=== PATIENT | male | born 1945 | race Caucasian/White ===

== ENCOUNTER 2022-01-26 18:28 | Inpatient (IN) | payer MEDICARE, BC ==
[~2022-01-26] VITALS: Ht 182.9 cm; Wt 72.6 kg
[2022-01-26] MEDS ORDERED: LOVA20TA2 PO (18:48)
--- NOTE | 2022-01-26 18:51 | NUR ---
PT IS IN ROOM #2A. DR TREJO EVALUATED THE PT.
[2022-01-26] MEDS ORDERED: MIRT-73 PO (18:58)
[2022-01-26] MEDS ORDERED: ALPR2TAB7 PO (18:58)
[2022-01-26] MEDS ORDERED: ASCO500P18 PO (18:58)
[2022-01-26] MEDS ORDERED: ATOR10TA PO (18:58)
[2022-01-26] MEDS ORDERED: QUET100T PO (18:58)
[2022-01-26] MEDS ORDERED: CYAN100T44 PO (18:58)
[2022-01-26] MEDS ORDERED: OLME20TA13 PO (18:58)
[2022-01-26] MEDS ORDERED: TRAZ-257 PO (18:58)
[2022-01-26] MEDS ORDERED: VITAMIN D PO (18:58)
[2022-01-26] MEDS ORDERED: FENO134C PO (18:58)
[2022-01-26] MEDS ORDERED: MAGNESIUM PO (18:58)
[2022-01-26 19:18] LABS: HEMATOCRIT 43.6 % (36.7-47.1); MEAN CORPUSCULAR HEMOGLOBIN 29.3 uug (23.8-33.4); MEAN CORPUSCULAR VOLUME 86.7 fL (73.0-96.2); PLATELET COUNT (AUTO) 230 K/uL (152-348)
--- NOTE | 2022-01-26 19:24 | NUR ---
Patient taken to CT
--- NOTE | 2022-01-26 19:35 | NUR ---
Patient back from CT
[2022-01-26 20:03] LABS: *BILIRUBIN,URIN NEGATIVE (NEGATIVE); *BLOOD, URINE NEGATIVE (NEGATIVE); *CLARITY,URINE CLEAR (CLEAR); *COLOR,URINE YELLOW (YELLOW); *KETONES,URINE NEGATIVE (NEGATIVE); *UROBILINOGEN,URINE 0.2 E.U./dl (NORMAL); LEUKOCYTE ESTERASE ,URINE NEGATIVE (NEGATIVE); NITRITE, URINE NEGATIVE (NEGATIVE); UGLUCOSE NEGATIVE (NEGATIVE)
--- NOTE | 2022-01-26 20:04 | NUR ---
Patient is a/ox4, able to walk with steady gait, NAD noted
[2022-01-26 20:10] LABS: ALANINE AMINOTRANSFERASE 28 U/L (16-63); ALKALINE PHOSPHATASE 42 U/L (50-136); ASPARTATE AMINOTRANSFERASE 21 U/L (15-37); BILIRUBIN,DIRECT 0.1 mg/dL (0.0-0.2); BILIRUBIN,TOTAL 0.3 mg/dL (0.2-1.0); CARBON DIOXIDE 28 mmol/L (21-32); CHLORIDE 102 mmol/L (98-107); CREATININE 1.2 mg/dL (0.6-1.3); GLUCOSE 117 mg/dL (74-106); POTASSIUM 3.8 mmol/L (3.5-5.1); TOTAL PROTEIN, SERUM 7.2 g/dL (6.4-8.2); UREA NITROGEN, BLOOD 25 mg/dL (7-18)
[2022-01-26 21:14] LABS: THYROID STIMULATING HORMONE 5.927 mIU/mL (0.358-3.740)
--- NOTE | 2022-01-26 22:05 | NUR ---
report given to Alethea DASILVA. Patient will be admitted to TELE room 312 under Rachael Robbins
[2022-01-26] MEDS ORDERED: ALPRAZOLAM 0.25 MG TABLET ONE (23:14)
[2022-01-26] MEDS ORDERED: hydrALAZINE HCL 20 MG/1 ML VIAL IV PRN (23:15)
[2022-01-26] MEDS ORDERED: MAG HYDROX/AL HYDROX/SIMETH 30 ML LIQUID UDC PO PRN (23:15)
[2022-01-26] MEDS ORDERED: ALPRAZOLAM 0.25 MG TABLET PO ONE (23:15)
[2022-01-27] MEDS: BLOOD SUGAR DIAGNOSTIC 1 EACH STRIP VI SCH ×2 (00:06→06:10)
--- NOTE | 2022-01-27 00:17 | NUR ---
Pt. admitted to TELE , under care of Dr. Rachael Robbins Belongs List completed Shy RN aware of patient's arrival
[2022-01-27] MEDS: TRAZODONE 100 MG TABLET PO SCH ×2 (00:30→21:27)
[2022-01-27 00:31] VITALS: BP 152/78
[2022-01-27] MEDS: ENOXAPARIN SODIUM 40 MG/0.4 ML DISP.SYRIN SQ SCH ×2 (00:31→21:26)
[2022-01-27] MEDS ORDERED: ALPRAZOLAM 0.5 MG TABLET PO ONE (03:00)
[2022-01-27 04:40] VITALS: BP 101/56
--- NOTE | 2022-01-27 05:48 | NUR ---
Admitted patient to tele. Alert and oriented x 4. On room air. No signs of acute respiratory distress. All extremities WNL. Able to walk to bathroom. Admitted for slurred speech. Speech clear upon assessment. Passed nurse swallow eval test. NPO. MRI ordered for later today. Explained procedure to patient. IV intact. Skin intact. Administered Xanax PO for verbalizations of anxiety. Resting in bed comfortably.
[2022-01-27 07:22] LABS: HEMATOCRIT 41.2 % (36.7-47.1); MEAN CORPUSCULAR HEMOGLOBIN 31.4 uug (23.8-33.4); MEAN CORPUSCULAR VOLUME 89.8 fL (73.0-96.2); PLATELET COUNT (AUTO) 206 K/uL (152-348)
[2022-01-27 07:28] LABS: CREATININE 1.3 mg/dL (0.6-1.3); POTASSIUM 4.1 mmol/L (3.5-5.1)
[2022-01-27] MEDS ORDERED: BLOOD SUGAR DIAGNOSTIC 1 EACH STRIP VI SCH (07:30)
[2022-01-27 07:33] LABS: BILIRUBIN,TOTAL 0.4 mg/dL (0.2-1.0); MAGNESIUM 1.8 mg/dL (1.8-2.4); PHOSPHOROUS 2.4 mg/dL (2.5-4.9); TOTAL PROTEIN, SERUM 7.3 g/dL (6.4-8.2)
--- NOTE | 2022-01-27 08:41 | NUR ---
I did bedside nursing swallow evaluation, patient could tolerate apple sauce and water very well. Said he had no difficulty swallowing at all. Meanwhile, waiting for the swallowing evaluation to come.
[2022-01-27] MEDS ORDERED: PANTOPRAZOLE SODIUM 40 MG VIAL IV SCH (09:00)
[2022-01-27] MEDS ORDERED: CYANOCOBALAMIN 100 MCG TABLET PO SCH (09:00)
[2022-01-27] MEDS ORDERED: LOSARTAN POTASSIUM 50 MG TABLET PO SCH (09:00)
[2022-01-27] MEDS ORDERED: Medication Not On Formulary EA (Fenofibrate,Micronized (Fenofibrate) 134 MG) PO SCH (09:00)
[2022-01-27] MEDS ORDERED: hydrALAZINE HCL 25 MG TABLET PO PRN (09:30)
--- NOTE | 2022-01-27 10:00 | NUR ---
MRI NOT APPROVED BY DR. ARMSTRONG. ON HOLD FOR NOW PER DR. ARMSTRONG , HE WILL LET US KNOW.
[2022-01-27] MEDS: ASCORBIC ACID 500 MG TABLET PO SCH (11:03)
[2022-01-27] MEDS: CYANOCOBALAMIN 1,000 MCG TABLET PO SCH (11:03)
[2022-01-27] MEDS: ASPIRIN EC 81 MG TABLET.DR PO SCH (11:03)
[2022-01-27] MEDS: FENOFIBRATE NANOCRYSTALLIZED 145 MG TABLET PO SCH (11:05)
[2022-01-27 11:07] VITALS: BP 156/80
[2022-01-27 11:07] LABS: THYROID STIMULATING HORMONE 6.053 mIU/mL (0.358-3.740)
[2022-01-27] MEDS ORDERED: LORAZEPAM 2 MG/1 ML VIAL IV ONE (11:45)
[2022-01-27] MEDS ORDERED: TRAZ-257 PO (13:28)
[2022-01-27] MEDS ORDERED: OXYB5TAB16 PO (13:28)
[2022-01-27] MEDS ORDERED: ALPR0.5T8 PO (13:32)
[2022-01-27 15:09] VITALS: BP 145/71
[2022-01-27] MEDS ORDERED: NEUTRA PHOS PACKET PO ONE ×2 (16:00→18:00)
[2022-01-27] MEDS: ACETAMINOPHEN 325 MG TABLET PO PRN (17:43)
[2022-01-27] MEDS ORDERED: TRAZODONE 100 MG TABLET PO SCH (18:00)
[2022-01-27] MEDS ORDERED: QUETIAPINE FUMARATE 100 MG TABLET PO SCH ×2 (18:00)
[2022-01-27 20:15] VITALS: BP 101/48
[2022-01-27] MEDS ORDERED: SIMVASTATIN 10 MG TABLET PO SCH (21:00)
[2022-01-27] MEDS ORDERED: MIRTAZAPINE 15 MG TABLET PO SCH ×2 (21:00)
[2022-01-27] MEDS ORDERED: MIRTAZAPINE 15 MG TAB.RAPDIS PO SCH (21:00)
[2022-01-28] MEDS: ACETAMINOPHEN 325 MG TABLET PO PRN (03:18)
[2022-01-28 04:18] VITALS: BP 130/65
[2022-01-28 07:16] LABS: CREATININE 1.3 mg/dL (0.6-1.3); PHOSPHOROUS 2.9 mg/dL (2.5-4.9); POTASSIUM 4.2 mmol/L (3.5-5.1)
[2022-01-28] MEDS ORDERED: OXYBUTYNIN CHLORIDE 5 MG TABLET PO SCH (09:00)
[2022-01-28] MEDS ORDERED: MAGNESIUM OXIDE 250 MG TABLET PO SCH (09:00)
[2022-01-28] MEDS ORDERED: CHOLECALCIFEROL 1,000 UNIT TABLET PO SCH (09:00)
--- NOTE | 2022-01-28 09:30 | NUR ---
AMBULATING AD LISBETH. VERY ANXIOUS. DENIES PAIN OR DISCOMFORT.
[2022-01-28] MEDS: ASCORBIC ACID 500 MG TABLET PO SCH (10:13)
[2022-01-28] MEDS: FENOFIBRATE NANOCRYSTALLIZED 145 MG TABLET PO SCH (10:13)
[2022-01-28] MEDS: ASPIRIN EC 81 MG TABLET.DR PO SCH (10:14)
[2022-01-28] MEDS: CYANOCOBALAMIN 1,000 MCG TABLET PO SCH (10:15)
[2022-01-28 11:27] VITALS: BP 148/71
[2022-01-28] MEDS ORDERED: ASPI-618 PO (12:02)
[2022-01-28] MEDS ORDERED: ASPI81TA31 PO (12:03)
[2022-01-28] MEDS ORDERED: LORAZEPAM 1 MG TABLET PO ONE (12:15)
--- NOTE | 2022-01-28 13:20 | NUR ---
PREPARED FOR DISCHARGE. HEPARIN LOCK DC'D. AWAITING DAUGHTER.
--- NOTE | 2022-01-28 14:00 | NUR ---
DISCHARGE AMBULATORY, ACCOMPANIED BY RAYMUNDO RN TO DAUGHTER IN AUTO.
== END 2022-01-28 14:00 | disposition home or self-care (01) | DRG 77 ==
LOC: ER 18:33 → TELE3 23:43 → MEDSURG3 01-27 08:45
PROVIDERS: ADMIT Internal Medicine; ATTEND Internal Medicine
DX: I67.4 Hypertensive encephalopathy (principal); N17.0 Acute kidney failure with tubular necrosis; E78.5 Hyperlipidemia, unspecified; F39 Unspecified mood [affective] disorder; Z87.442 Personal history of urinary calculi; I12.9 Hypertensive chronic kidney disease with stage 1 through stage 4 chronic kidney disease, or unspecified chronic kidney disease; N18.9 Chronic kidney disease, unspecified; R94.6 Abnormal results of thyroid function studies; Z20.822 Contact with and (suspected) exposure to COVID-19; E03.9 Hypothyroidism, unspecified; I70.0 Atherosclerosis of aorta; R20.2 Paresthesia of skin; F41.9 Anxiety disorder, unspecified; F90.9 Attention-deficit hyperactivity disorder, unspecified type; M19.90 Unspecified osteoarthritis, unspecified site; N28.1 Cyst of kidney, acquired; R47.81 Slurred speech; F40.240 Claustrophobia; I16.0 Hypertensive urgency
CPT/HCPCS: 36415; 70450; 71045; 83735; 84100; 84443; 84484; 85025; 85730; 93005; 93307; 93880; 97161; A4663; G0378; J1650; J2060